=== PATIENT | female | born 1985 | race African-American/Black ===

== ENCOUNTER 2016-10-30 15:58 | Emergency (ER) | payer SELFPAY ==
[2016-10-30 16:25] VITALS: TEMP 97.8
--- NOTE | 2016-10-30 17:34 | UCPHY ---
H & P Time Seen by Provider: 10/30/16 16:39 Patient Type: New HPI/ROS: This patient presents with a chief complaint of bright red blood in her stools for the past 3 days. It is also present on the toilet paper after wiping. She feels that she has been stooling somewhat more frequently than usual and that her stools have been loose but not watery. In the bowl the blood seems to be separate from the stool. She has had no nausea and no vomiting. Frequently she develops epigastric burning prior to stooling but currently she has no abdominal pain. She has had no fever and has not been ill otherwise. She denies urinary tract symptoms such as frequency, hematuria or urgency or dysuria. She is quite anxious that she might have cancer. Smoking Status: Current some day smoker Physical Exam: This is a well-developed well-nourished female who is in no acute distress. She is alert, lucid, conversant and cooperative. Her gait and speech patterns are normal. Abdomen: The abdomen is slightly distended but there is no hyper-resonance to percussion. Bowel sounds are normally active. There is no tenderness at this time. There is no organomegaly. Rectal exam: Externally there is is no abnormalities specifically no evidence of hemorrhoids. No masses were appreciated on the exam and the amount of stool present on the examining finger afterwards is minimal however was sent for Hemoccult testing. Constitutional: Initial Vital Signs Temperature (C) 36.6 C 10/30/16 16:17 Heart Rate 92 10/30/16 16:17 Respiratory Rate 14 10/30/16 16:17 Blood Pressure 129/72 H 10/30/16 16:17 O2 Sat (%) 96 10/30/16 16:17 O2 Delivery Mode Room Air Allergies/Adverse Reactions: No Known Allergies Allergy (Unverified 10/30/16 16:17) Home Medications: Medication Instructions Recorded NK [No Known Home Meds] 10/30/16 Medical Decision Making Differential Diagnosis: I believe the cause of this rectal bleeding is highly unlikely to be secondary to cancer, inflammatory bowel disease infectious colitis or C diff. Most likely this is an internal hemorrhoid but am unable to evaluated further at this time. I do not believe that the abdominal pain is indicative of peptic ulcer disease or gallbladder disease or pancreatitis. - Data Points Laboratory Results: 10/30/16 17:25 Stool Occult Bld Scrn NEGATIVE (NEGATIVE) Departure - Departure Disposition: Home, Routine, Self-Care Clinical Impression: Rectal bleeding Condition: Good Instructions: Rectal Bleeding (ED) Additional Instructions: You need to follow-up with the gastroenterology group that is provided to you in these pages. If the pain becomes constant or the please the bleeding becomes more profuse you should go to an emergency room. Referrals: Tre Martinez MD [Medical Doctor] - As per Instructions [facility] [Provider Group] - As per Instructions - PQRS PQRS Measurement: Not applicable
[2016-10-30 18:08] VITALS: BP 130/96; PULSE 88; RESP 16; O2SAT 97
== END 2016-10-30 18:00 | disposition home or self-care (01) ==
LOC: CED 15:58
DX: K62.5 Hemorrhage of anus and rectum (principal); Z72.0 Tobacco use
CPT/HCPCS: 82270-PO; 99203-PO; G0463-PO